=== PATIENT | male | born 1985 | race Caucasian/White ===

== ENCOUNTER 2017-06-14 19:48 | Inpatient (IN) | payer MEDICAID, OTHER ==
[2017-06-14 19:49] VITALS: BMI 27.7
[2017-06-14] MEDS ORDERED: Sodium Chloride 0.9% 1,000 ML IV ONE (20:56)
[2017-06-14] MEDS ORDERED: Sodium Chloride 0.9% 1,000 ML ONE (21:14)
--- NOTE | 2017-06-14 21:15 | C.PDOC ---
History Of Present Illness <Karey Ortega - Last Filed: 06/14/17 22:04> <Giancarlo Cárdenas - Last Filed: 06/15/17 00:21> 31 year old male presents to the ED for evaluation of pain and swelling to his left ankle which began after using IV heroin earlier today. Patient admits to using 6 bags. He states the ankle pain is worsening and he is unable to walk secondary to pain. Patient denies fever, chills. (Karey Ortega) pt seen and examined by this MD. PT injected "heroine" into the dorsum of L ankle area twice today, noted an immediate pain and burning to the ankle area and no pain relief from the "heroine." Denies injecting into the joint space intentionally. typically uses approx 6 bags heroine daily for "years." (Giancarlo Cárdenas) History Per: Patient History/Exam Limitations: no limitations Onset/Duration Of Symptoms: Hrs Current Symptoms Are (Timing): Still Present Additional History Per: Patient <JordanKarey L - Last Filed: 06/14/17 22:04> <Giancarlo Cárdenas - Last Filed: 06/15/17 00:21> Time Seen by Provider: 06/14/17 20:25 Chief Complaint (Nursing): Abnormal Skin Integrity Past Medical History Reviewed: Historical Data, Nursing Documentation, Vital Signs - Medical History PMH: Kidney Stones Surgical History: No Surg Hx Family History: States: Unknown Family Hx - Social History Hx Tobacco Use: Yes Hx Alcohol Use: No (a pint of vodka daily) Hx Substance Use: Yes (heroin) - Immunization History Hx Tetanus Toxoid Vaccination: Yes (recently while in senior care) Hx Influenza Vaccination: No Hx Pneumococcal Vaccination: No <JordanKarey L - Last Filed: 06/14/17 22:04> Vital Signs: Last Vital Signs Temp 99.2 F 06/14/17 19:59 Pulse 100 H 06/14/17 19:59 Resp 20 06/14/17 19:59 BP 151/87 H 06/14/17 19:59 Pulse Ox 100 06/14/17 22:06 - [facility] Procedures DRUG DETOXIFICATION (10/07/14) MEDS MGMT FOR SUBSTANCE ABUSE TREATMENT, METHADONE MAINT (01/19/16) Review Of Systems Constitutional: Negative for: Fever, Chills Musculoskeletal: Positive for: Other (left ankle pain and swelling ) <Karey Ortega - Last Filed: 06/14/17 22:04> Physical Exam - Physical Exam Appears: Non-toxic, No Acute Distress Skin: Normal Color, Warm, Dry, Other (bright erythema and tactile warmth to left medial ankle ) Head: Atraumatic, Normacephalic Eye(s): bilateral: Normal Inspection, EOMI Neck: Normal ROM Chest: Symmetrical Cardiovascular: Rhythm Regular, No Murmur Respiratory: Normal Breath Sounds, No Wheezing Extremity: No Normal ROM (limited to left ankle, secondary to pain ), No Calf Tenderness, Capillary Refill (less than 2 seconds), Other (swelling and erythema over medial aspect of left ankle ) Pulses: Left Dorsalis Pedis: Normal, Right Dorsalis Pedis: Normal Neurological/Psych: Oriented x3, Normal Speech Gait: Unable To Assess <Karey Ortega - Last Filed: 06/14/17 22:04> ED Course And Treatment - Laboratory Results Result Diagrams: 06/14/17 21:17 06/14/17 21:17 O2 Sat by Pulse Oximetry: 100 (on RA) Pulse Ox Interpretation: Normal <Karey Ortega - Last Filed: 06/14/17 22:04> - Laboratory Results Result Diagrams: 06/14/17 21:17 06/14/17 21:17 <Giancarlo Cárdenas - Last Filed: 06/15/17 00:21> Medical Decision Making: Impression: cellulitis s.p IVDA Plan: * Labs * Blood Cx * Xray Patient seen and examined by Dr Cárdenas. He does not think patient has septic joint. Recommends awaiting labs and giving antibiotics. if labs normal, can discharge with oral antibiotics Progress: Labs shows elevated WBC 18. UDS +opiates, cocaine and cannabis Spoke with Podiatry resident at 2150 who will come to evaluate patient. [address] Jacome who accepts patient to service (Karey Ortega) Disposition - Disposition Disposition Time: 21:55 - POA Present On Arrival: None <Karey Ortega - Last Filed: 06/14/17 22:04> <Giancarlo Cárdenas - Last Filed: 06/15/17 00:21> - Disposition Disposition: HOSPITALIZED Condition: STABLE - Clinical Impression Clinical Impression: IVDU (intravenous drug user), Cellulitis of left ankle - PA / [employer] / Resident Statement MD/DO has reviewed & agrees with the documentation as recorded. - Scribe Statement The provider has reviewed the documentation as recorded by the Scribe (Micaela Louie) <Karey Ortega - Last Filed: 06/14/17 22:04> <Giancarlo Cárdenas - Last Filed: 06/15/17 00:21> - Scribe Statement All medical record entries made by the Scribe were at my direction and personally dictated by me. I have reviewed the chart and agree that the record accurately reflects my personal performance of the history, physical exam, medical decision making, and the department course for this patient. I have also personally directed, reviewed, and agree with the discharge instructions and disposition. (Karey Ortega) Decision To Admit - Pt Status Changed To: Hospital Disposition Of: Inpatient - Admit Certification Admit to Inpatient:: After my assessment, the patient will require hospitalization for at least two midnights. This is because of the severity of symptoms shown, intensity of services needed, and/or the medical risk in this patient being treated as an outpatient. - InPatient: Physician Admission Certification: I certify that this patient requires 2 or more midnights of care for the following reason:: patient with cellulitis to left ankle. needs podiatry consult. will need IV antibiotics - . Bed Request Type: Regular Admitting Physician: Raul Jacome <Karey Ortega - Last Filed: 06/14/17 22:04> <Giancarlo Cárdenas - Last Filed: 06/15/17 00:21> - . Patient Diagnosis: IVDU (intravenous drug user), Cellulitis of left ankle
[2017-06-14] MEDS ORDERED: Piperacill/Tazo 3.375gm in Dex 3.375 GM/50 ML BAG IVPB STA (21:21)
[2017-06-14 21:25] LABS: BASO # 0.1 K/uL (0.0-0.2); BASO % 0.8 % (0.0-2.0); EOS # 0.2 K/uL (0.0-0.7); EOS % 1.2 % (0.0-4.0); HEMOGLOBIN 16.3 g/dL (12.0-18.0); LYMPH # 3.7 K/uL (1.0-4.3); LYMPH % 20.5 % (20.0-40.0); MEAN CELL VOLUME 86.1 fL (80.0-94.0); MEAN CORPUSCULAR HEMOGLOBIN 29.2 pg (27.0-31.0); MEAN PLATELET VOLUME 8.4 fL (7.2-11.7); MONO # 1.7 K/uL (0.0-0.8); MONO % 9.2 % (0.0-10.0); NEUT # 12.3 K/uL (1.8-7.0); NEUT % 68.3 % (50.0-75.0); NRBC % 0.1 % (0.0-2.0); RBC 5.57 Mil/uL (4.40-5.90); RED CELL DISTRIBUTION WIDTH 13.7 % (11.5-14.5)
[2017-06-14 21:32] LABS: SQUAMOUS EPITHIAL 1 /hpf (0-5); URINE BILIRUBIN NEGATIVE (NEGATIVE); URINE BLOOD 2+ (NEGATIVE); URINE CLARITY Hazy (Clear); URINE COLOR Yellow (YELLOW); URINE GLUCOSE (UA) NORMAL (Normal); URINE LEUKOCYTE ESTERASE NEG Leu/uL (Negative); URINE NITRATE NEGATIVE (NEGATIVE); URINE PROTEIN 1+ mg/dL (NEGATIVE)
[2017-06-14 21:34] LABS: ALB/GLOB RATIO 1.1 (1.0-2.1); ALBUMIN 4.3 g/dL (3.5-5.0); ALT/SGPT 77 U/L (21-72); AST/SGOT 67 U/L (17-59); BLOOD UREA NITROGEN 15 mg/dL (9-20); CALCIUM 9.1 mg/dl (8.6-10.4); GFR AFRICAN-AMERICAN > 60; GFR NON-AFRICAN AMERICAN > 60
[2017-06-14 21:40] LABS: BARBITURATES, UR NEGATIVE (NEGATIVE); BENZODIAZEPINES, UR NEGATIVE (NEGATIVE); PHENCYCLIDINE, UR NEGATIVE (NEGATIVE)
[2017-06-14 21:43] LABS: OPIATES, UR POSITIVE (NEGATIVE)
[2017-06-14] MEDS ORDERED: Vancomycin 1 gm/NS 200 ml 1 GM/200 ML BAG IVPB STA (21:48)
[2017-06-14] MEDS ORDERED: Piperacillin/Tazobact 3.375 gm 100 ML IVPB ONE (21:50)
--- NOTE | 2017-06-14 22:52 | CP.PCM.CON ---
History of Present Illness - History of Present Illness History of Present Illness: Podiatry Consult Note - Dr. Rivera 31 year old male with PMHx kidney stones, hx of substance abuse seen and evaluated in ED for left ankle pain. Patient hemodynamically stable and NAD. Patient states yesterday he tried to inject heroin into his veins in his left ankle and the top of his left foot. Patient states that he noticed today his left ankle was extremely painful, red, and swollen; patient currently complaining of 10/10 pain at left ankle injection site. Patient admits to taking someone else's prescribed Toradol for pain prior to presenting to ED, but it has not provided any pain relief. Patient unable to ambulate on his left foot secondary to pain. Patient states he had been "clean for years," but recently began using IV heroin again. No other pedal complaints. Patient denies any N/V/F/D/C/SOB currently. PMHx: kidney stones PSH: none FH: unknown SH: denies ETOH, 1PPD for 18 years, IV heroin, marijuana, cocaine All: shellfish Review of Systems - Review of Systems All systems: reviewed and no additional remarkable complaints except (as per HPI ) Past Patient History - Tetanus Immunizations Tetanus Immunization: Unknown - Past Medical History & Family History Past Medical History?: No - Past Social History Smoking Status: Heavy Smoker > 10 Cigarettes Daily - CARDIAC Hx Hypertension: No - PULMONARY Hx Respiratory Disorders: No Hx Tuberculosis: No - NEUROLOGICAL Hx Seizures: No - HEENT Hx HEENT Problems: No - RENAL Hx Kidney Stones: Yes - ENDOCRINE/METABOLIC Hx Endocrine Disorders: No - HEMATOLOGICAL/ONCOLOGICAL Hx Human Immunodeficiency Virus (HIV): No - INTEGUMENTARY Hx Dermatological Problems: No - MUSCULOSKELETAL/RHEUMATOLOGICAL Hx Musculoskeletal Disorders: No - GASTROINTESTINAL Hx Gastrointestinal Disorders: No - GENITOURINARY/GYNECOLOGICAL Hx Sexually Transmitted Disorders: No - PSYCHIATRIC Hx Substance Use: Yes (heroin) - SURGICAL HISTORY Hx Surgeries: No - ANESTHESIA Hx Anesthesia: No Meds Allergies/Adverse Reactions: Allergies Allergy/AdvReac Type Severity Reaction Status Date / Time shellfish derived Allergy ANGIOEDEMA Verified 01/19/16 16:34 - Medications Medications: Current Medications Vancomycin/Sodium Chloride (Vancomycin 1 Gm/Ns 200 Ml) 1 gm in 200 mls @ 133 mls/hr IVPB STAT STA Stop: 06/14/17 23:18 Sodium Chloride (Sodium Chloride 0.9%) 1,000 mls @ 100 mls/hr IV .Q10H DEISY Ibuprofen (Motrin Tab) 400 mg PO Q6 PRN PRN Reason: Pain, Mild (1-3) Ondansetron HCl (Zofran Inj) 4 mg IVP Q6 PRN PRN Reason: Nausea/Vomiting Pantoprazole Sodium (Protonix Ec Tab) 40 mg PO DAILY DEISY Physical Exam - Constitutional Appears: Well, Non-toxic, No Acute Distress - Extremities Exam Additional comments: VASC: DP pulses palpable 2/4 b/l. Right PT palpable 2/4. Left PT nonpalpable secondary to edema. CFT <3 seconds to all digits b/l. Temperature gradient warm to warm b/l. Increase in warmth noted to left medial ankle. Non-pitting edema noted to left medial ankle. Pedal hair growth appreciated. NEURO: Gross sensation intact. DERM: Pinpoint puncture lesion noted proximal to left medial malleolus with overlying eschar cap and surrounding erythema; no active drainage noted, no purulence, no fluctuance. Second pinpoint puncture lesion noted to dorsum of foot over 1st metatarsal shaft, noted to have overlying eschar cap and minimal surrounding erythema. ORTHO: Pain on palpation medial ankle and dorsum of 1st metatarsal shaft at pinpoint puncture lesions - Neurological Exam Neurological exam: Alert, Normal Gait - Psychiatric Exam Psychiatric exam: Normal Affect, Normal Mood Results - Vital Signs Recent Vital Signs: Last Vital Signs Temp 99.2 F 06/14/17 19:59 Pulse 100 H 06/14/17 19:59 Resp 20 06/14/17 19:59 BP 151/87 H 06/14/17 19:59 Pulse Ox 100 06/14/17 22:06 - Labs Result Diagrams: 06/14/17 21:17 06/14/17 21:17 Labs: Laboratory Results - last 24 hr 06/14/17 06/14/17 06/14/17 21:17 21:17 21:21 WBC 18.0 H D RBC 5.57 Hgb 16.3 Hct 48.0 MCV 86.1 MCH 29.2 MCHC 34.0 RDW 13.7 Plt Count 310 MPV 8.4 Neut % (Auto) 68.3 Lymph % (Auto) 20.5 [place] % (Auto) 9.2 Eos % (Auto) 1.2 Baso % (Auto) 0.8 Neut # (Auto) 12.3 H Lymph # (Auto) 3.7 [place] # (Auto) 1.7 H Eos # (Auto) 0.2 Baso # (Auto) 0.1 Sodium 138 Potassium 4.0 Chloride 96 L Carbon Dioxide 28 Anion Gap 18 BUN 15 Creatinine 0.6 L Est GFR ( Amer) > 60 Est GFR (Non-Af Amer) > 60 Random Glucose 91 Calcium 9.1 Total Bilirubin 0.8 AST 67 H ALT 77 H Alkaline Phosphatase 79 Total Protein 8.1 Albumin 4.3 Globulin 3.8 Albumin/Globulin Ratio 1.1 Urine Color Yellow Urine Clarity Hazy Urine pH 5.0 Ur Specific [place] 1.027 Urine Protein 1+ H Urine Glucose (UA) Normal Urine Ketones 1+ H Urine Blood 2+ H Urine Nitrate Negative Urine Bilirubin Negative Urine Urobilinogen 2.0 Ur Leukocyte Esterase Neg Urine WBC (Auto) 8 H Urine RBC (Auto) 89 H Ur Squamous Epith Cells 1 Urine Opiates Screen Urine Methadone Screen Ur Barbiturates Screen Ur Phencyclidine Scrn Ur Amphetamines Screen U Benzodiazepines Scrn U Oth Cocaine Metabols U Cannabinoids Screen Alcohol, Quantitative < 10 06/14/17 21:21 WBC RBC Hgb Hct MCV MCH MCHC RDW Plt Count MPV Neut % (Auto) Lymph % (Auto) [place] % (Auto) Eos % (Auto) Baso % (Auto) Neut # (Auto) Lymph # (Auto) [place] # (Auto) Eos # (Auto) Baso # (Auto) Sodium Potassium Chloride Carbon Dioxide Anion Gap BUN Creatinine Est GFR ( Amer) Est GFR (Non-Af Amer) Random Glucose Calcium Total Bilirubin AST ALT Alkaline Phosphatase Total Protein Albumin Globulin Albumin/Globulin Ratio Urine Color Urine Clarity Urine pH Ur Specific [place] Urine Protein Urine Glucose (UA) Urine Ketones Urine Blood Urine Nitrate Urine Bilirubin Urine Urobilinogen Ur Leukocyte Esterase Urine WBC (Auto) Urine RBC (Auto) Ur Squamous Epith Cells Urine Opiates Screen Positive H Urine Methadone Screen Negative Ur Barbiturates Screen Negative Ur Phencyclidine Scrn Negative Ur Amphetamines Screen Negative U Benzodiazepines Scrn Negative U Oth Cocaine Metabols Positive H U Cannabinoids Screen Positive H Alcohol, Quantitative Assessment & Plan - Assessment and Plan (Free Text) Assessment: 31 year old male with left ankle cellulitis secondary to IV heroin injection Plan: Patient seen and evaluated Discussed with attending, Dr. Rivera Afebrile, WBC 18.0 Left ankle XR reviewed: ST edema surrounding medial malleolus Patient started on Vancomycin, Zosyn in ED Pain control - Ibuprofen Patient to be admitted; podiatry will continue to follow while in house
--- NOTE | 2017-06-14 23:06 | CP.PCM.HP ---
<Nella JacintoSherita - Last Filed: 06/14/17 23:47> History of Present Illness - History of Present Illness History of Present Illness: CC: "I shot heroin and missed the vein and now I have an abscess." HPI: Patient is a 31 year old male with a past medical history of kidney stones and IV drug use, who presents to the ED with left ankle pain that he rates a 10/ 10. Patient reports using IV heroin yesterday in his ankle for the first time. He states he missed his vein and since then has had has severe pain and swelling at the site. He states he is unable to walk or move his foot/leg due to the pain. Patient states he took his mother's toradol yesterday, but pain was not relieved. He uses 6 bags of heroin IV daily for the last 4 years. His last use was Thursday at 4pm before coming to the hospital and used 4 bags total. His longest period of sobriety was 1 year, which he just broke 3 weeks ago when he started using IV heroin again. He also reports he occasionally smokes cocaine and smokes one blunt per week. Patient requests to go to detox and states he does not want to do drugs anymore. Patient currently admits to feeling sweaty and attributes that to withdrawing. Patient also admits to "a couple of weeks of coughing" with occasional brown sputum, a rash "on testicles that is itching and burning" and hard stool for the past two weeks. Patient denies chest pain, abdominal pain, nausea, vomiting, fevers/chills, headaches, dizziness, shortness of breath, diarrhea. PMD: Dr. 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 Allergies: NKDA Medications: none Present on Admission - Present on Admission Any Indicators Present on Admission: No Review of Systems - Constitutional Constitutional: absent: Chills, Fever, Headache, Weakness - EENT Eyes: absent: Change in Vision Nose/Mouth/Throat: absent: Sore Throat - Cardiovascular Cardiovascular: Diaphoresis, Leg Edema (left ankle). absent: Chest Pain, Dyspnea, Lightheadedness, Palpitations - Respiratory Respiratory: Cough (with phlegm, occasionally brown). absent: Dyspnea, Pain with Coughing - Gastrointestinal Gastrointestinal: Constipation. absent: Abdominal Pain, Cramping, Diarrhea, Nausea, Vomiting - Genitourinary Genitourinary: absent: Dysuria, Hematuria - Reproductive: Male Reproductive:Male: Genital Pruritis, Genital Odor - Integumentary Integumentary: Rash (genital) - Endocrine Endocrine: Excessive Sweating. absent: Palpitations Past Patient History - Tetanus Immunizations Tetanus Immunization: Unknown - Past Medical History & Family History Past Medical History?: No - Past Social History Smoking Status: Heavy Smoker > 10 Cigarettes Daily - CARDIAC Hx Hypertension: No - PULMONARY Hx Respiratory Disorders: No Hx Tuberculosis: No - NEUROLOGICAL Hx Seizures: No - HEENT Hx HEENT Problems: No - RENAL Hx Kidney Stones: Yes - ENDOCRINE/METABOLIC Hx Endocrine Disorders: No - HEMATOLOGICAL/ONCOLOGICAL Hx Human Immunodeficiency Virus (HIV): No - INTEGUMENTARY Hx Dermatological Problems: No - MUSCULOSKELETAL/RHEUMATOLOGICAL Hx Musculoskeletal Disorders: No - GASTROINTESTINAL Hx Gastrointestinal Disorders: No - GENITOURINARY/GYNECOLOGICAL Hx Sexually Transmitted Disorders: No - PSYCHIATRIC Hx Substance Use: Yes (heroin) - SURGICAL HISTORY Hx Surgeries: No - ANESTHESIA Hx Anesthesia: No Meds Allergies/Adverse Reactions: Allergies Allergy/AdvReac Type Severity Reaction Status Date / Time shellfish derived Allergy ANGIOEDEMA Verified 01/19/16 16:34 Physical Exam - Constitutional Appears: No Acute Distress - Head Exam Head Exam: NORMOCEPHALIC - Eye Exam Eye Exam: EOMI, Normal appearance. absent: Scleral icterus Pupil Exam: PERRL - ENT Exam ENT Exam: Mucous Membranes Moist - Respiratory Exam Respiratory Exam: Clear to Auscultation Bilateral, NORMAL BREATHING PATTERN. absent: Rales, Rhonchi, Wheezes, Respiratory Distress - Cardiovascular Exam Cardiovascular Exam: REGULAR RHYTHM, +S1, +S2 - GI/Abdominal Exam GI & Abdominal Exam: Normal Bowel Sounds, Soft. absent: Distended, Firm, Tenderness - Exam Exam: absent: NORMAL INSPECTION (erythema, mild rash noted inner thigh/ genital region), Scrotal Swelling - Extremities Exam Extremities exam: Positive for: tenderness (left medial malleolus), pedal pulses present. Negative for: calf tenderness, full ROM (Left LE due to pain), normal inspection (slight erythema- medial malleolus) - Neurological Exam Neurological exam: Alert, Oriented x3 - Psychiatric Exam Psychiatric exam: Normal Affect, Normal Mood - Skin Skin Exam: Intact, Normal Color, Warm Results - Vital Signs Recent Vital Signs: Last Vital Signs Temp 99.2 F 06/14/17 19:59 Pulse 100 H 06/14/17 19:59 Resp 20 06/14/17 19:59 BP 151/87 H 06/14/17 19:59 Pulse Ox 100 06/14/17 22:06 - Labs Result Diagrams: 06/14/17 21:17 06/14/17 21:17 Labs: Laboratory Results - last 24 hr 06/14/17 06/14/17 06/14/17 21:17 21:17 21:21 WBC 18.0 H D RBC 5.57 Hgb 16.3 Hct 48.0 MCV 86.1 MCH 29.2 MCHC 34.0 RDW 13.7 Plt Count 310 MPV 8.4 Neut % (Auto) 68.3 Lymph % (Auto) 20.5 [place] % (Auto) 9.2 Eos % (Auto) 1.2 Baso % (Auto) 0.8 Neut # (Auto) 12.3 H Lymph # (Auto) 3.7 [place] # (Auto) 1.7 H Eos # (Auto) 0.2 Baso # (Auto) 0.1 Sodium 138 Potassium 4.0 Chloride 96 L Carbon Dioxide 28 Anion Gap 18 BUN 15 Creatinine 0.6 L Est GFR ( Amer) > 60 Est GFR (Non-Af Amer) > 60 Random Glucose 91 Calcium 9.1 Total Bilirubin 0.8 AST 67 H ALT 77 H Alkaline Phosphatase 79 Total Protein 8.1 Albumin 4.3 Globulin 3.8 Albumin/Globulin Ratio 1.1 Urine Color Yellow Urine Clarity Hazy Urine pH 5.0 Ur Specific [place] 1.027 Urine Protein 1+ H Urine Glucose (UA) Normal Urine Ketones 1+ H Urine Blood 2+ H Urine Nitrate Negative Urine Bilirubin Negative Urine Urobilinogen 2.0 Ur Leukocyte Esterase Neg Urine WBC (Auto) 8 H Urine RBC (Auto) 89 H Ur Squamous Epith Cells 1 Urine Opiates Screen Urine Methadone Screen Ur Barbiturates Screen Ur Phencyclidine Scrn Ur Amphetamines Screen U Benzodiazepines Scrn U Oth Cocaine Metabols U Cannabinoids Screen Alcohol, Quantitative < 10 06/14/17 21:21 WBC RBC Hgb Hct MCV MCH MCHC RDW Plt Count MPV Neut % (Auto) Lymph % (Auto) [place] % (Auto) Eos % (Auto) Baso % (Auto) Neut # (Auto) Lymph # (Auto) [place] # (Auto) Eos # (Auto) Baso # (Auto) Sodium Potassium Chloride Carbon Dioxide Anion Gap BUN Creatinine Est GFR ( Amer) Est GFR (Non-Af Amer) Random Glucose Calcium Total Bilirubin AST ALT Alkaline Phosphatase Total Protein Albumin Globulin Albumin/Globulin Ratio Urine Color Urine Clarity Urine pH Ur Specific [place] Urine Protein Urine Glucose (UA) Urine Ketones Urine Blood Urine Nitrate Urine Bilirubin Urine Urobilinogen Ur Leukocyte Esterase Urine WBC (Auto) Urine RBC (Auto) Ur Squamous Epith Cells Urine Opiates Screen Positive H Urine Methadone Screen Negative Ur Barbiturates Screen Negative Ur Phencyclidine Scrn Negative Ur Amphetamines Screen Negative U Benzodiazepines Scrn Negative U Oth Cocaine Metabols Positive H U Cannabinoids Screen Positive H Alcohol, Quantitative Assessment & Plan (1) Cellulitis of left ankle Assessment and Plan: Secondary to IVDU; may be infiltration or phlebitis In the ED, vancomycin, zosyn, toradol, and IVF were given. Podiatry consulted, help appreciated Ankle xray: f/u results Venous doppler of left LE: f/u results Ibuprofen 600mg PO Q6h prn for moderate pain Vancomycin 1gm IV Q24 and Zosyn 3.375gm IV Q6h (active 06/15/17) May apply ice packs prn Status: Acute (2) Polysubstance abuse Assessment and Plan: Hx of opioid (IV), cocaine, and cannabinoid use Psychiatry consulted, Dr. Emery, help appreciated Clonidine 0.1 mg Q8h prn for autonomic symptoms Bentyl 10mg PO Q8h prn for cramps Ibuprofen 600mg Q6 prn for moderate pain Zofran 4mg IV 16prn for nausea/vomiting Status: Acute (3) Rash of genital area Assessment and Plan: Nystatin, apply topically to the affected area HIV 1&2: f/u results Status: Acute (4) Prophylactic measure Assessment and Plan: NO scds due to LE swelling/pain Protonix 40mg PO daily Regular Diet Status: Acute <Raul Jacome - Last Filed: 06/15/17 06:22> Results - Vital Signs Recent Vital Signs: Last Vital Signs Temp 98.7 F 06/15/17 04:12 Pulse 65 06/15/17 04:12 Resp 20 06/15/17 04:12 BP 103/58 L 06/15/17 04:12 Pulse Ox 98 06/15/17 04:12 - Labs Result Diagrams: 06/14/17 21:17 06/14/17 21:17 Labs: Laboratory Results - last 24 hr 06/14/17 06/14/17 06/14/17 21:17 21:17 21:21 WBC 18.0 H D RBC 5.57 Hgb 16.3 Hct 48.0 MCV 86.1 MCH 29.2 MCHC 34.0 RDW 13.7 Plt Count 310 MPV 8.4 Neut % (Auto) 68.3 Lymph % (Auto) 20.5 [place] % (Auto) 9.2 Eos % (Auto) 1.2 Baso % (Auto) 0.8 Neut # (Auto) 12.3 H Lymph # (Auto) 3.7 [place] # (Auto) 1.7 H Eos # (Auto) 0.2 Baso # (Auto) 0.1 Sodium 138 Potassium 4.0 Chloride 96 L Carbon Dioxide 28 Anion Gap 18 BUN 15 Creatinine 0.6 L Est GFR ( Amer) > 60 Est GFR (Non-Af Amer) > 60 Random Glucose 91 Calcium 9.1 Total Bilirubin 0.8 AST 67 H ALT 77 H Alkaline Phosphatase 79 Total Protein 8.1 Albumin 4.3 Globulin 3.8 Albumin/Globulin Ratio 1.1 Urine Color Yellow Urine Clarity Hazy Urine pH 5.0 Ur Specific [place] 1.027 Urine Protein 1+ H Urine Glucose (UA) Normal Urine Ketones 1+ H Urine Blood 2+ H Urine Nitrate Negative Urine Bilirubin Negative Urine Urobilinogen 2.0 Ur Leukocyte Esterase Neg Urine WBC (Auto) 8 H Urine RBC (Auto) 89 H Ur Squamous Epith Cells 1 Urine Opiates Screen Urine Methadone Screen Ur Barbiturates Screen Ur Phencyclidine Scrn Ur Amphetamines Screen U Benzodiazepines Scrn U Oth Cocaine Metabols U Cannabinoids Screen Alcohol, Quantitative < 10 06/14/17 21:21 WBC RBC Hgb Hct MCV MCH MCHC RDW Plt Count MPV Neut % (Auto) Lymph % (Auto) [place] % (Auto) Eos % (Auto) Baso % (Auto) Neut # (Auto) Lymph # (Auto) [place] # (Auto) Eos # (Auto) Baso # (Auto) Sodium Potassium Chloride Carbon Dioxide Anion Gap BUN Creatinine Est GFR ( Amer) Est GFR (Non-Af Amer) Random Glucose Calcium Total Bilirubin AST ALT Alkaline Phosphatase Total Protein Albumin Globulin Albumin/Globulin Ratio Urine Color Urine Clarity Urine pH Ur Specific [place] Urine Protein Urine Glucose (UA) Urine Ketones Urine Blood Urine Nitrate Urine Bilirubin Urine Urobilinogen Ur Leukocyte Esterase Urine WBC (Auto) Urine RBC (Auto) Ur Squamous Epith Cells Urine Opiates Screen Positive H Urine Methadone Screen Negative Ur Barbiturates Screen Negative Ur Phencyclidine Scrn Negative Ur Amphetamines Screen Negative U Benzodiazepines Scrn Negative U Oth Cocaine Metabols Positive H U Cannabinoids Screen Positive H Alcohol, Quantitative Assessment & Plan - Date & Time Date: 06/15/17 (I have seen and examined the patient. I agree with the findings and plan of care as documented by Dr. Jacinto. Patient with cellulitis. Cellulitis related to IV drug use. Vanco and Zosyn. Blood and wound cultures. Podiatry consult called by ED. Also with polysubstance abuse. Consult to psych for possible detox when available and medically stable. Monitor for acute changes.) Time: 06:20 Attending/Attestation - Attestation I have personally seen and examined this patient.: Yes I have fully participated in the care of the patient.: Yes I have reviewed all pertinent clinical information: Yes
[2017-06-14] MEDS ORDERED: Piperacillin/Tazobact 3.375 GM in Sodium Chloride 100 ML IVPB SCH (23:30)
[2017-06-15] MEDS: Vancomycin 1 gm/NS 200 ml 1 GM/200 ML BAG IVPB SCH ×2 (00:03→23:01)
[2017-06-15] MEDS: Piperacill/Tazo 3.375gm in Dex 3.375 GM/50 ML BAG IVPB SCH ×5 (00:04→22:00)
[2017-06-15] MEDS: Nystatin 100,000 Units/gm Cream(15 gm) TOP SCH ×4 (00:18→18:15)
[2017-06-15] MEDS: Sodium Chloride 0.9% 1,000 ML IV SCH ×2 (00:19→10:20)
[2017-06-15] MEDS ORDERED: Piperacillin/Tazobact 3.375 gm 0 ML IVPB ONE (05:28)
[2017-06-15 07:54] LABS: ALB/GLOB RATIO 1.1 (1.0-2.1); ALBUMIN 3.3 g/dL (3.5-5.0); ALT/SGPT 58 U/L (21-72); AST/SGOT 56 U/L (17-59); BASO % 0.4 % (0.0-2.0); BLOOD UREA NITROGEN 13 mg/dL (9-20); CALCIUM 8.4 mg/dl (8.6-10.4); EOS # 0.3 K/uL (0.0-0.7); EOS % 2.5 % (0.0-4.0); GFR AFRICAN-AMERICAN > 60; GFR NON-AFRICAN AMERICAN > 60; HEMOGLOBIN 14.9 g/dL (12.0-18.0); LYMPH # 1.8 K/uL (1.0-4.3); LYMPH % 17.5 % (20.0-40.0); MEAN CELL VOLUME 85.6 fL (80.0-94.0); MEAN CORPUSCULAR HEMOGLOBIN 29.7 pg (27.0-31.0); MEAN CORPUSCULAR HGB CONC 34.7 g/dL (33.0-37.0); MEAN PLATELET VOLUME 8.5 fL (7.2-11.7); MONO # 1.3 K/uL (0.0-0.8); MONO % 12.8 % (0.0-10.0); NEUT # 6.8 K/uL (1.8-7.0); NEUT % 66.8 % (50.0-75.0); NRBC % 0.1 % (0.0-2.0); RBC 5.02 Mil/uL (4.40-5.90); RED CELL DISTRIBUTION WIDTH 13.4 % (11.5-14.5); WHITE BLOOD COUNT 10.3 K/uL (4.8-10.8)
--- NOTE | 2017-06-15 08:27 | RAD ---
HISTORY: productive cough COMPARISON: 01/19/2016 TECHNIQUE: Chest PA and lateral FINDINGS: LUNGS: No active pulmonary disease. PLEURA: No significant pleural effusion identified. No pneumothorax apparent. CARDIOVASCULAR: Normal. OSSEOUS STRUCTURES: No significant abnormalities. VISUALIZED UPPER ABDOMEN: Normal. OTHER FINDINGS: None. IMPRESSION: No active disease.
[2017-06-15 08:48] LABS: HEPATITIS B SURFACE AG Negative (NEGATIVE)
[2017-06-15 08:53] LABS: HEPATITIS A IGM NEGATIVE (NEGATIVE)
[2017-06-15 08:54] LABS: HEPATITIS B CORE AB NEGATIVE (NEGATIVE)
--- NOTE | 2017-06-15 09:20 | RAD ---
PROCEDURE: Left ankle dated 06/14/2017 HISTORY: Pain and swelling, infection COMPARISON: None FINDINGS: BONES: Normal. No fracture. JOINTS: Normal. No osteoarthritis. Ankle mortise maintained. Talar dome intact SOFT TISSUES: Mild soft tissue swelling with small joint effusion OTHER FINDINGS: None. IMPRESSION: No evidence of acute displaced fracture nor dislocation. Mild soft tissue swelling or suspect small joint effusion.
[2017-06-15] MEDS ORDERED: Pantoprazole 40 mg EC Tab PO SCH (10:00)
--- NOTE | 2017-06-15 13:49 | CP.PCM.PN ---
Subjective - Date & Time of Evaluation Date of Evaluation: 06/15/17 Time of Evaluation: 13:48 - Subjective Subjective: Podiatry progress note for Dr. Rivera 31 year old male seen at beside in the ED regarding left ankle pain. He currently denies any pain to the area. He is very sleepy at time of visit. Currently denies any n/v/f/c/sob/cp. Objective - Vital Signs/Intake and Output Vital Signs (last 24 hours): Temp Pulse Resp BP Pulse Ox 99.4 F 75 16 129/77 99 06/15/17 11:46 06/15/17 11:46 06/15/17 11:46 06/15/17 11:46 06/15/17 11:46 - Medications Medications: Current Medications Clonidine HCl (Catapres) 0.1 mg PO Q8H PRN PRN Reason: Anxiety Dicyclomine HCl (Bentyl) 10 mg PO Q8H PRN PRN Reason: Leg cramps Heparin Sodium (Porcine) (Heparin) 5,000 units SC Q12 [facility] Last Admin: 06/15/17 11:57 Dose: 5,000 units Sodium Chloride (Sodium Chloride 0.9%) 1,000 mls @ 100 mls/hr IV .Q10H [facility] Last Admin: 06/15/17 10:20 Dose: 100 mls/hr Piperacillin Sod/Tazobactam Sod (Zosyn 3.375 Gm Iv Premix) 3.375 gm in 50 mls @ 100 mls/hr IVPB Q6H [facility] Last Admin: 06/15/17 11:46 Dose: 100 mls/hr Vancomycin/Sodium Chloride (Vancomycin 1 Gm/Ns 200 Ml) 1 gm in 200 mls @ 166.7 mls/hr IVPB Q24H [facility] Stop: 06/19/17 23:01 Last Admin: 06/15/17 00:03 Dose: Not Given Ibuprofen (Motrin Tab) 600 mg PO Q6 PRN PRN Reason: Pain, moderate (4-7) Nystatin (Mycostatin Cream) 1 ea TOP TID [facility] Last Admin: 06/15/17 13:06 Dose: Not Given Ondansetron HCl (Zofran Inj) 4 mg IVP Q6 PRN PRN Reason: Nausea/Vomiting Last Admin: 06/15/17 07:07 Dose: 4 mg Pantoprazole Sodium (Protonix Ec Tab) 40 mg PO DAILY [facility] Last Admin: 06/15/17 10:48 Dose: 40 mg - Labs Labs: 06/15/17 07:14 06/15/17 07:14 - Constitutional Appears: Non-toxic, No Acute Distress - Extremities Exam Additional comments: Left lower extremity focused exam: VASC: Left DP pulses palpable 2/4, PT nonpalpable secondary to edema. CFT <3 seconds to all digits b/l. Temperature gradient warm to warm b/l. Increase in warmth noted to left medial ankle. Non-pitting edema noted to left medial ankle. Pedal hair growth appreciated. NEURO: Gross sensation intact. DERM: Pinpoint puncture lesion noted proximal to left medial malleolus with overlying eschar cap and surrounding erythema; no active drainage noted, no purulence, no fluctuance. Second pinpoint puncture lesion noted to dorsum of foot over 1st metatarsal shaft, noted to have overlying eschar cap and minimal surrounding erythema. ORTHO: Tenderess on palpation medial ankle and dorsum of 1st metatarsal shaft at pinpoint puncture lesions - Neurological Exam Neurological Exam: Awake - Psychiatric Exam Psychiatric exam: Normal Affect Assessment and Plan - Assessment and Plan (Free Text) Assessment: 31 year old male with left ankle cellulitis secondary to IV heroin injection Plan: Patient seen and evaluated Discussed with attending, Dr. Rivera chart, labs, vitals revewed; febrile, WBC 10.3 Left ankle XR reviewed: ST edema surrounding medial malleolus Cont IV abx per primary Podiatry will cont to follow patient while in house
--- NOTE | 2017-06-15 13:59 | PCM.PSYCH ---
Initial Psychiatric Evaluation - Initial Psychiatric Evaluation Type of Admission: Voluntary Legal Status: Capacity Chief Complaint (in patient's own words): "I just want to get clean" History of Present Illness and Precipitating Events: Consult: Detox 31 y.o. 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 He has been using heroin for 3 years via injection about a bundle daily. He has never attended rehab but did detox one time (does not remember where). His longest sobriety was 1 year following his detox from which he relapsed 2 weeks ago. He smokes cocaine occasionally. He smokes a pack of cigarettes daily. He denies alcohol use. He denies all other drug use. He was complaint with NA meetings which helped him stay sober. He has a history of depression and anxiety which he was taking zoloft and clonidine for but stopped both medications in March. He is currently experience severe withdrawal symptoms including sweating, chills, aches, anxiety, and yawning. Detox Hx: once Rehab Hx: never Medical Hx: kidney stones Medications: zoloft, clonidine Psych Hx: depression, anxiety Fam Hx: father opioid use d/o Current Medications: Active Medications Generic Name Dose Route Start Last Admin Trade Name Freq PRN Reason Stop Dose Admin Clonidine HCl 0.1 mg 06/14/17 22:55 Catapres PO Q8H PRN Anxiety Dicyclomine HCl 10 mg 06/14/17 22:58 Bentyl PO Q8H PRN Leg cramps Heparin Sodium (Porcine) 5,000 units 06/15/17 10:00 06/15/17 11:57 Heparin SC 5,000 units Q12 [facility] Administration Sodium Chloride 1,000 mls @ 100 mls/hr 06/14/17 23:00 06/15/17 10:20 Sodium Chloride 0.9% IV 100 mls/hr .Q10H [facility] Administration Piperacillin Sod/Tazobactam Sod 3.375 gm in 50 mls @ 100 mls/hr 06/14/17 23: 00 06/15/17 11:46 Zosyn 3.375 Gm Iv Premix IVPB 100 mls/hr Q6H [facility] Administration Vancomycin/Sodium Chloride 1 gm in 200 mls @ 166.7 mls/hr 06/14/17 23:00 00:03 Vancomycin 1 Gm/Ns 200 Ml IVPB 06/19/17 23:01 Not Given Q24H [facility] Ibuprofen 600 mg 06/14/17 22:59 Motrin Tab PO Q6 PRN Pain, moderate (4-7) Nystatin 1 ea 06/14/17 23:15 06/15/17 13:06 Mycostatin Cream TOP Not Given TID [facility] Ondansetron HCl 4 mg 06/14/17 22:46 06/15/17 07:07 Zofran Inj IVP 4 mg Q6 PRN Administration Nausea/Vomiting Pantoprazole Sodium 40 mg 06/15/17 10:00 06/15/17 10:48 Protonix Ec Tab PO 40 mg DAILY [facility] Administration Past Psychiatric History - Past Psychiatric History Pertinent Medical Hx (Current Medical&Sleep Prob, Allergies): Allergies Allergy/AdvReac Type Severity Reaction Status Date / Time shellfish derived Allergy ANGIOEDEMA Verified 01/19/16 16:34 No Known Home Med 06/14/17 Review of Systems - Constitutional Constitutional: Chills, Sweats, Weakness, Malaise - Neurological Neurological: Other (yawning) - Psychiatric Psychiatric: Anxiety, Difficulty Concentrating, Irritability. absent: Depression, Hallucinations, Homicidal Ideation, Visual Hallucinations Mental Status Examination - Personal Presentation Personal Presentation: Looks stated age - Affect Affect: Constricted - Motor Activity Motor Activity: Calm - Reliability in Providing Information Reliability in Providing Information: Good - Speech Speech: Organized - Mood Mood: Anxious, Other (irritble ) - Formal Thought Process Formal Thought Process: No Impairment - Obsessions/Compulsions Obsessions: No Compulsions: No - Cognitive Functions Orientation: Person, Place, Situation, Time Sensorium: Alert Attention/Concentration: Easily distracted Abstract Thinking: [place] Estimate of Intelligence: Average Judgement: Intact, as evidence by: Insight regarding need for hospitalization Memory: Recent intact, as evidence by: Ability to recall events of the day, Remote intact, as evidenced by: Abilit to recall sig. life events - Risk Risk: Withdrawal - Strength & Assets Inventory Strength & Assets Inventory: Employment status, Skills, Life experience, Cooperative - Limitations Limitations: Living alone DSM 5 DX - DSM 5 DSM 5 Diagnosis: Opioid Withdrawal Opioid Use d/o - severe Anxiety d/o - unspecified Cocaine use d.o - severe Nicotine use d/0 - severe - Recommended/Plan of Treatment Treatment Recommendations and Plan of Treatment: Heroin detox Gabapentin for augmentation As needed medications All risks, benefits and alternatives of the meds discussed, and the pt agreed and understood. Attend groups and activities Supportive therapy and psychoeducation [place] for abstinence CBT for relapse prevention Encourage MAT Refer to rehab or IOP, and self-help groups Smoking cessation with [place] Nicotine patch 34 min Projected ELOS: 4-5 days Prognosis: good with treatment Discharge Plan and Discharge Criteria: NA and IOP - Smoking Cessation Smoking Cessation Initiated: Yes
--- NOTE | 2017-06-15 14:37 | CP.PCM.PN ---
<Fanny Olsen - Last Filed: 06/15/17 14:28> Subjective - Date & Time of Evaluation Date of Evaluation: 06/15/17 Time of Evaluation: 09:00 - Subjective Subjective: Medicine Note for Hospitalist Service- Dr. Lanier Patient was seen and examined at bedside. Patient reports left ankle pain, especially during range of motion. He also admits to nausea, and abdominal pain. Denied fever, chills, chest pain, SOB, v/d/c, or urinary symptoms. Reports his groan itch has calmed down since applying the nystatin cream. Objective - Vital Signs/Intake and Output Vital Signs (last 24 hours): Temp Pulse Resp BP Pulse Ox 99.4 F 75 16 129/77 99 06/15/17 11:46 06/15/17 11:46 06/15/17 11:46 06/15/17 11:46 06/15/17 11:46 - Medications Medications: Current Medications Clonidine HCl (Catapres) 0.1 mg PO Q8H PRN PRN Reason: Anxiety Dicyclomine HCl (Bentyl) 10 mg PO Q8H PRN PRN Reason: Leg cramps Heparin Sodium (Porcine) (Heparin) 5,000 units SC Q12 [facility] Last Admin: 06/15/17 11:57 Dose: 5,000 units Sodium Chloride (Sodium Chloride 0.9%) 1,000 mls @ 100 mls/hr IV .Q10H [facility] Last Admin: 06/15/17 10:20 Dose: 100 mls/hr Piperacillin Sod/Tazobactam Sod (Zosyn 3.375 Gm Iv Premix) 3.375 gm in 50 mls @ 100 mls/hr IVPB Q6H [facility] Last Admin: 06/15/17 11:46 Dose: 100 mls/hr Vancomycin/Sodium Chloride (Vancomycin 1 Gm/Ns 200 Ml) 1 gm in 200 mls @ 166.7 mls/hr IVPB Q24H [facility] Stop: 06/19/17 23:01 Last Admin: 06/15/17 00:03 Dose: Not Given Ibuprofen (Motrin Tab) 600 mg PO Q6 PRN PRN Reason: Pain, moderate (4-7) Nystatin (Mycostatin Cream) 1 ea TOP TID [facility] Last Admin: 06/15/17 13:06 Dose: Not Given Ondansetron HCl (Zofran Inj) 4 mg IVP Q6 PRN PRN Reason: Nausea/Vomiting Last Admin: 06/15/17 07:07 Dose: 4 mg Pantoprazole Sodium (Protonix Ec Tab) 40 mg PO DAILY [facility] Last Admin: 06/15/17 10:48 Dose: 40 mg - Labs Labs: 06/15/17 07:14 06/15/17 07:14 - Additional Findings Additional findings: - Constitutional Appears: No Acute Distress - Head Exam Head Exam: NORMOCEPHALIC - Eye Exam Eye Exam: EOMI, Normal appearance. absent: Scleral icterus Pupil Exam: PERRL - ENT Exam ENT Exam: Mucous Membranes Moist - Respiratory Exam Respiratory Exam: Clear to Auscultation Bilateral, NORMAL BREATHING PATTERN. absent: Rales, Rhonchi, Wheezes, Respiratory Distress - Cardiovascular Exam Cardiovascular Exam: REGULAR RHYTHM, +S1, +S2 - GI/Abdominal Exam GI & Abdominal Exam: Normal Bowel Sounds, Soft. absent: Distended, Firm, Tenderness - Exam Exam: absent: NORMAL INSPECTION (erythema, mild rash noted inner thigh/ genital region), Scrotal Swelling - Extremities Exam Extremities exam: Positive for: tenderness (left medial malleolus), pedal pulses present. Negative for: calf tenderness, full ROM (Left LE due to pain), normal inspection (slight erythema- medial malleolus) - Neurological Exam Neurological exam: Alert, Oriented x3 - Psychiatric Exam Psychiatric exam: Normal Affect, Normal Mood - Skin Skin Exam: Intact, Normal Color, Warm Assessment and Plan - Assessment and Plan (Free Text) Plan: Cellulitis of left ankle Secondary to IVDU; may be infiltration or phlebitis Podiatry consulted, help appreciated - no intervention at this time - will continue to monitor Ankle xray: no foreign Venous doppler of left LE: f/u results Blood cultures: f/u Ibuprofen 600mg PO Q6h prn for moderate pain Vancomycin 1gm IV Q24 and Zosyn 3.375gm IV Q6h (active 06/15/17), f/u vanco trough May apply ice packs prn Polysubstance abuse Assessment and Plan: Hx of opioid (IV), cocaine, and cannabinoid use Psychiatry consulted, Dr. Emery, help appreciated Clonidine 0.1 mg Q8h prn for autonomic symptoms Bentyl 10mg PO Q8h prn for cramps Ibuprofen 600mg Q6 prn for moderate pain Zofran 4mg IV 16prn for nausea/vomiting Hepatitis C+ Assessment and Plan: Patient will need to establish himself in our [facility] clinic, to receive GI referral for outpatient treatment. Rash of genital area Assessment and Plan: Nystatin, apply topically to the affected area HIV 1&2: negative Prophylactic Measures Assessment and Plan: NO scds due to LE swelling/pain Protonix 40mg PO daily Regular Diet DW Dr. Lanier, Fanny Olsen DO, PGY-1 <Aredn Lanier - Last Filed: 06/15/17 14:55> Objective - Vital Signs/Intake and Output Vital Signs (last 24 hours): Temp Pulse Resp BP Pulse Ox 99.4 F 75 16 129/77 99 06/15/17 11:46 06/15/17 11:46 06/15/17 11:46 06/15/17 11:46 06/15/17 11:46 - Medications Medications: Current Medications Clonidine HCl (Catapres) 0.1 mg PO Q8H PRN PRN Reason: Anxiety Dicyclomine HCl (Bentyl) 10 mg PO Q8H PRN PRN Reason: Leg cramps Heparin Sodium (Porcine) (Heparin) 5,000 units SC Q12 [facility] Last Admin: 06/15/17 11:57 Dose: 5,000 units Sodium Chloride (Sodium Chloride 0.9%) 1,000 mls @ 100 mls/hr IV .Q10H [facility] Last Admin: 06/15/17 10:20 Dose: 100 mls/hr Piperacillin Sod/Tazobactam Sod (Zosyn 3.375 Gm Iv Premix) 3.375 gm in 50 mls @ 100 mls/hr IVPB Q6H [facility] Last Admin: 06/15/17 11:46 Dose: 100 mls/hr Vancomycin/Sodium Chloride (Vancomycin 1 Gm/Ns 200 Ml) 1 gm in 200 mls @ 166.7 mls/hr IVPB Q24H [facility] Stop: 06/19/17 23:01 Last Admin: 06/15/17 00:03 Dose: Not Given Ibuprofen (Motrin Tab) 600 mg PO Q6 PRN PRN Reason: Pain, moderate (4-7) Nystatin (Mycostatin Cream) 1 ea TOP TID [facility] Last Admin: 06/15/17 13:06 Dose: Not Given Ondansetron HCl (Zofran Inj) 4 mg IVP Q6 PRN PRN Reason: Nausea/Vomiting Last Admin: 06/15/17 07:07 Dose: 4 mg Pantoprazole Sodium (Protonix Ec Tab) 40 mg PO DAILY [facility] Last Admin: 06/15/17 10:48 Dose: 40 mg - Labs Labs: 06/15/17 07:14 06/15/17 07:14 Attending/Attestation - Attestation I have personally seen and examined this patient.: Yes I have fully participated in the care of the patient.: Yes I have reviewed all pertinent clinical information, including history, physical exam and plan: Yes Notes (Text): 06/15/17 14:55 Medical attending: Patient was seen and examined by me, I saw the patient together with the medical/surgery registered nurse and agree with the above note by the resident. When I saw him at the medical/surgery registered nurse, he was still in the emergency room ending on the bed placement. He was sleeping he was not agitated. He appeared to be calm and was cooperative during the exam. He underwent ankle x-rays did not suggest any osteomyelitis or foreign bodies. The skin area with the erythema has been marked out by the medical/surgery registered nurse with a marker he is on IV antibiotics were to follow this area hopefully this can decrease in over time. Is also given be followed by psychiatry as well due to history of opiate Ebenezer as well as cocaine abuse. He also tested positive for hepatitis C Thank you very much, Arden Lanier
[2017-06-15 18:18] VITALS: TEMP 98.2
--- NOTE | 2017-06-15 18:34 | CARD ---
APPROVED REPORT EXAM: Two-dimensional and M-mode echocardiogram with Doppler and color Doppler. Other Information Quality : GoodRhythm : INDICATION Infection: Cellulitis/ IV drug user 2D DIMENSIONS IVSd0.8 (0.7-1.1cm)LVDd5.2 (3.9-5.9cm) PWd0.8 (0.7-1.1cm)LVDs2.9 (2.5-4.0cm) FS (%) 43.3 %LVEF (%)74.1 (>50%) M-Mode DIMENSIONS RVDd2.58 (2.1-3.2cm)Left Atrium (MM)3.91 (2.5-4.0cm) IVSd0.95 (0.7-1.1cm)Aortic Root3.05 (2.2-3.7cm) LVDd5.75 (4.0-5.6cm)Aortic Cusp Exc.2.41 (1.5-2.0cm) PWd0.74 (0.7-1.1cm)FS (%) 45 % LVDs3.14 (2.0-3.8cm)LVEF (%)76 (>50%) Mitral Valve MV E Ernyfehw42.0cm/sMV A Kmjxigzy33.9cm/sE/A ratio1.9 TDI E/Lateral E'0.0E/Medial E'0.0 Tricuspid Valve TR Peak [id number]/sTR Peak Gr.[id number] LEFT VENTRICLE The left ventricle is normal size. There is normal left ventricular wall thickness. The left ventricular function is normal. The left ventricular ejection fraction is within the normal range. There is normal LV segmental wall motion. The left ventricular diastolic function is normal. RIGHT VENTRICLE The right ventricle is normal size. The right ventricular systolic function is normal. ATRIA The left atrium size is normal. The right atrium size is normal. The interatrial septum is intact with no evidence for an atrial septal defect. AORTIC VALVE The aortic valve is normal in structure. No aortic regurgitation is present. MITRAL VALVE The mitral valve is normal in structure. There is no mitral valve regurgitation noted. TRICUSPID VALVE The tricuspid valve is normal in structure. There is trace tricuspid regurgitation. PULMONIC VALVE The pulmonary valve is normal in structure. GREAT VESSELS The aortic root is normal in size. The IVC is normal in size and collapses >50% with inspiration. PERICARDIAL EFFUSION There is no pericardial effusion. <Conclusion> Normal bi - ventricular function. No valvualr abnormality. No pericardial effusion.
[2017-06-15 20:51] VITALS: O2SAT 98
[2017-06-16 00:26] VITALS: BP 118/64; PULSE 65; RESP 20
[2017-06-16] MEDS: Sodium Chloride 0.9% 1,000 ML IV SCH (02:00)
[2017-06-16] MEDS: Piperacill/Tazo 3.375gm in Dex 3.375 GM/50 ML BAG IVPB SCH (04:30)
[2017-06-16] MEDS ORDERED: Piperacillin/Tazobact 3.375 GM in Sodium Chloride 0.9% 100 ML IVPB SCH ×2 (06:30→12:30)
[2017-06-16 07:52] LABS: ALB/GLOB RATIO 1.1 (1.0-2.1); ALBUMIN 3.3 g/dL (3.5-5.0); ALT/SGPT 51 U/L (21-72); AST/SGOT 39 U/L (17-59); BLOOD UREA NITROGEN 6 mg/dL (9-20); CALCIUM 8.4 mg/dl (8.6-10.4); GFR AFRICAN-AMERICAN > 60; GFR NON-AFRICAN AMERICAN > 60; MAGNESIUM 1.9 mg/dL (1.6-2.3)
[2017-06-16 07:53] LABS: BASO % 0.2 % (0.0-2.0); EOS # 0.1 K/uL (0.0-0.7); EOS % 0.8 % (0.0-4.0); HEMOGLOBIN 14.9 g/dL (12.0-18.0); LYMPH % 17.1 % (20.0-40.0); MEAN CELL VOLUME 85.7 fL (80.0-94.0); MEAN CORPUSCULAR HEMOGLOBIN 29.4 pg (27.0-31.0); MEAN CORPUSCULAR HGB CONC 34.3 g/dL (33.0-37.0); MEAN PLATELET VOLUME 8.9 fL (7.2-11.7); MONO # 0.9 K/uL (0.0-0.8); MONO % 7.8 % (0.0-10.0); NEUT # 8.6 K/uL (1.8-7.0); NEUT % 74.1 % (50.0-75.0); NRBC % 0.1 % (0.0-2.0); RBC 5.07 Mil/uL (4.40-5.90); RED CELL DISTRIBUTION WIDTH 13.1 % (11.5-14.5); WHITE BLOOD COUNT 11.6 K/uL (4.8-10.8)
--- NOTE | 2017-06-16 07:53 | CP.PCM.DIS ---
<aFnny Olsen - Last Filed: 06/16/17 07:49> Provider - Provider Date of Admission: 06/14/17 21:55 Attending physician: Arden Lanier DO Consults: Psych: Rupert Time Spent in preparation of Discharge (in minutes): 55 Hospital Course - Lab Results Lab Results: Micro Results 06/14/17 21:30 Blood Blood Culture - Preliminary NO GROWTH AFTER 24 HOURS 06/14/17 21:00 Blood Blood Culture - Preliminary NO GROWTH AFTER 24 HOURS Most Recent Lab Values WBC 10.3 K/uL (4.8-10.8) 06/15/17 07:14 RBC 5.02 Mil/uL (4.40-5.90) 06/15/17 07:14 Hgb 14.9 g/dL (12.0-18.0) 06/15/17 07:14 Hct 43.0 % (35.0-51.0) 06/15/17 07:14 MCV 85.6 fL (80.0-94.0) 06/15/17 07:14 MCH 29.7 pg (27.0-31.0) 06/15/17 07:14 MCHC 34.7 g/dL (33.0-37.0) 06/15/17 07:14 RDW 13.4 % (11.5-14.5) 06/15/17 07:14 Plt Count 258 K/uL (130-400) 06/15/17 07:14 MPV 8.5 fL (7.2-11.7) 06/15/17 07:14 Neut % (Auto) 66.8 % (50.0-75.0) 06/15/17 07:14 Lymph % (Auto) 17.5 % (20.0-40.0) L 06/15/17 07:14 [place] % (Auto) 12.8 % (0.0-10.0) H 06/15/17 07:14 Eos % (Auto) 2.5 % (0.0-4.0) 06/15/17 07:14 Baso % (Auto) 0.4 % (0.0-2.0) 06/15/17 07:14 Neut # (Auto) 6.8 K/uL (1.8-7.0) 06/15/17 07:14 Lymph # (Auto) 1.8 K/uL (1.0-4.3) 06/15/17 07:14 [place] # (Auto) 1.3 K/uL (0.0-0.8) H 06/15/17 07:14 Eos # (Auto) 0.3 K/uL (0.0-0.7) 06/15/17 07:14 Baso # (Auto) 0.0 K/uL (0.0-0.2) 06/15/17 07:14 Sodium 136 mmol/L (132-148) 06/15/17 07:14 Potassium 3.7 mmol/L (3.6-5.2) 06/15/17 07:14 Chloride 104 mmol/L (98-107) 06/15/17 07:14 Carbon Dioxide 22 mmol/L (22-30) 06/15/17 07:14 Anion Gap 14 (10-20) 06/15/17 07:14 BUN 13 mg/dL (9-20) 06/15/17 07:14 Creatinine 0.6 mg/dL (0.8-1.5) L 06/15/17 07:14 Est GFR ( Amer) > 60 06/15/17 07:14 Est GFR (Non-Af Amer) > 60 06/15/17 07:14 Random Glucose 100 mg/dL (75-110) 06/15/17 07:14 Calcium 8.4 mg/dl (8.6-10.4) L 06/15/17 07:14 Phosphorus 2.7 mg/dL (2.5-4.5) 06/15/17 09:31 Magnesium 2.0 mg/dL (1.6-2.3) 06/15/17 09:31 Total Bilirubin 0.7 mg/dL (0.2-1.3) 06/15/17 07:14 AST 56 U/L (17-59) 06/15/17 07:14 ALT 58 U/L (21-72) 06/15/17 07:14 Alkaline Phosphatase 59 U/L (38-126) 06/15/17 07:14 Total Protein 6.3 g/dL (6.3-8.3) 06/15/17 07:14 Albumin 3.3 g/dL (3.5-5.0) L D 06/15/17 07:14 Globulin 2.9 gm/dL (2.2-3.9) 06/15/17 07:14 Albumin/Globulin Ratio 1.1 (1.0-2.1) 06/15/17 07:14 Urine Color Yellow (YELLOW) 06/14/17 21:21 Urine Clarity Hazy (Clear) 06/14/17 21:21 Urine pH 5.0 (5.0-8.0) 06/14/17 21:21 Ur Specific [place] 1.027 (1.003-1.030) 06/14/17 21:21 Urine Protein 1+ mg/dL (NEGATIVE) H 06/14/17 21:21 Urine Glucose (UA) Normal mg/dL (Normal) 06/14/17 21:21 Urine Ketones 1+ mg/dL (NEGATIVE) H 06/14/17 21:21 Urine Blood 2+ (NEGATIVE) H 06/14/17 21:21 Urine Nitrate Negative (NEGATIVE) 06/14/17 21:21 Urine Bilirubin Negative (NEGATIVE) 06/14/17 21:21 Urine Urobilinogen 2.0 mg/dL (0.2-1.0) 06/14/17 21:21 Ur Leukocyte Esterase Neg Hilda/uL (Negative) 06/14/17 21:21 Urine WBC (Auto) 8 /hpf (0-5) H 06/14/17 21:21 Urine RBC (Auto) 89 /hpf (0-3) H 06/14/17 21:21 Ur Squamous Epith Cells 1 /hpf (0-5) 06/14/17 21:21 Urine Opiates Screen Positive (NEGATIVE) H 06/14/17 21:21 Urine Methadone Screen Negative (NEGATIVE) 06/14/17 21:21 Ur Barbiturates Screen Negative (NEGATIVE) 06/14/17 21:21 Ur Phencyclidine Scrn Negative (NEGATIVE) 06/14/17 21:21 Ur Amphetamines Screen Negative (NEGATIVE) 06/14/17 21:21 U Benzodiazepines Scrn Negative (NEGATIVE) 06/14/17 21:21 U Oth Cocaine Metabols Positive (NEGATIVE) H 06/14/17 21:21 U Cannabinoids Screen Positive (NEGATIVE) H 06/14/17 21:21 Alcohol, Quantitative < 10 mg/dl (0-10) 06/14/17 21:17 Hepatitis A IgM Ab Negative (NEGATIVE) 06/15/17 08:01 Hep Bs Antigen Negative (NEGATIVE) 06/15/17 08:01 Hep B Core IgM Ab Negative (NEGATIVE) 06/15/17 08:01 Hepatitis C Antibody Reactive (NEGATIVE) 06/15/17 08:01 HIV 1&2 Antibody Screen Negative (NEGATIVE) 06/15/17 09:38 - Hospital Course Hospital Course: Upon Admission: CC: "I shot heroin and missed the vein and now I have an abscess." HPI: Patient is a 31 year old male with a past medical history of kidney stones and IV drug use, who presents to the ED with left ankle pain that he rates a 10/ 10. Patient reports using IV heroin yesterday in his ankle for the first time. He states he missed his vein and since then has had has severe pain and swelling at the site. He states he is unable to walk or move his foot/leg due to the pain. Patient states he took his mother's toradol yesterday, but pain was not relieved. He uses 6 bags of heroin IV daily for the last 4 years. His last use was Thursday at 4pm before coming to the hospital and used 4 bags total. His longest period of sobriety was 1 year, which he just broke 3 weeks ago when he started using IV heroin again. He also reports he occasionally smokes cocaine and smokes one blunt per week. Patient requests to go to detox and states he does not want to do drugs anymore. Patient currently admits to feeling sweaty and attributes that to withdrawing. Patient also admits to "a couple of weeks of coughing" with occasional brown sputum, a rash "on testicles that is itching and burning" and hard stool for the past two weeks. Patient denies chest pain, abdominal pain, nausea, vomiting, fevers/chills, headaches, dizziness, shortness of breath, diarrhea. PMD: Dr. 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 Allergies: NKDA Medications: none Throughout Hospital Course: Patient admitted for cellulitis. Patient was placed on IV abx would transition to PO abx and once medically cleared patient was going to be transferred to Detox. Patient refused to stay. He signed out AMA due to not receiving any methadone or subutrex. Patient reported he took a subutrex from his wallet. Cellulitis of left ankle Secondary to IVDU; may be infiltration or phlebitis Podiatry consulted, help appreciated - no intervention at this time - will continue to monitor Ankle xray: no foreign Venous doppler of left LE: f/u results Blood cultures: negative to date Ibuprofen 600mg PO Q6h prn for moderate pain Vancomycin 1gm IV Q24 and Zosyn 3.375gm IV Q6h (active 06/15/17), f/u vanco trough May apply ice packs prn Polysubstance abuse Assessment and Plan: Hx of opioid (IV), cocaine, and cannabinoid use Psychiatry consulted, Dr. Emery, help appreciated Clonidine 0.1 mg Q8h prn for autonomic symptoms Bentyl 10mg PO Q8h prn for cramps Ibuprofen 600mg Q6 prn for moderate pain Zofran 4mg IV 16prn for nausea/vomiting Hepatitis C+ Assessment and Plan: Patient will need to establish himself in our [facility] clinic, to receive GI referral for outpatient treatment. Rash of genital area Assessment and Plan: Nystatin, apply topically to the affected area HIV 1&2: negative Please review EMR for full record. This is a brief summary of the patient's hospital course. Discharge Exam - Additional Findings Additional findings: - Constitutional Appears: No Acute Distress - Head Exam Head Exam: NORMOCEPHALIC - Eye Exam Eye Exam: EOMI, Normal appearance. absent: Scleral icterus Pupil Exam: PERRL - ENT Exam ENT Exam: Mucous Membranes Moist - Respiratory Exam Respiratory Exam: Clear to Auscultation Bilateral, NORMAL BREATHING PATTERN. absent: Rales, Rhonchi, Wheezes, Respiratory Distress - Cardiovascular Exam Cardiovascular Exam: REGULAR RHYTHM, +S1, +S2 - GI/Abdominal Exam GI & Abdominal Exam: Normal Bowel Sounds, Soft. absent: Distended, Firm, Tenderness - Exam Exam: absent: NORMAL INSPECTION (erythema, mild rash noted inner thigh/ genital region), Scrotal Swelling - Extremities Exam Extremities exam: Positive for: tenderness (left medial malleolus), pedal pulses present. Negative for: calf tenderness, full ROM (Left LE due to pain), normal inspection (slight erythema- medial malleolus) - Neurological Exam Neurological exam: Alert, Oriented x3 - Psychiatric Exam Psychiatric exam: Normal Affect, Normal Mood - Skin Skin Exam: Intact, Normal Color, Warm Discharge Plan - Follow Up Plan Disposition: AGAINST MEDICAL ADVICE Instructions: Cellulitis (DC), Cellulitis (GEN) Additional Instructions: You sign out against medical advice. PLEASE FOLLOW UP WITH OWN PRIMARY PHYSICIAN TODAY OR SOON POSSIBLE. Please return to the ED if your symptoms worsen. You develop fever, chills, or drainage from the site. Referrals: [facility] [Outside] <Arden Lanier - Last Filed: 06/16/17 09:40> Provider - Provider Date of Admission: 06/14/17 21:55 Attending physician: Arden Lanier DO Hospital Course - Lab Results Lab Results: Micro Results 06/14/17 21:30 Blood Blood Culture - Preliminary NO GROWTH AFTER 24 HOURS 06/14/17 21:00 Blood Blood Culture - Preliminary NO GROWTH AFTER 24 HOURS Most Recent Lab Values WBC 11.6 K/uL (4.8-10.8) H 06/16/17 07:16 RBC 5.07 Mil/uL (4.40-5.90) 06/16/17 07:16 Hgb 14.9 g/dL (12.0-18.0) 06/16/17 07:16 Hct 43.4 % (35.0-51.0) 06/16/17 07:16 MCV 85.7 fL (80.0-94.0) 06/16/17 07:16 MCH 29.4 pg (27.0-31.0) 06/16/17 07:16 MCHC 34.3 g/dL (33.0-37.0) 06/16/17 07:16 RDW 13.1 % (11.5-14.5) 06/16/17 07:16 Plt Count 271 K/uL (130-400) 06/16/17 07:16 MPV 8.9 fL (7.2-11.7) 06/16/17 07:16 Neut % (Auto) 74.1 % (50.0-75.0) 06/16/17 07:16 Lymph % (Auto) 17.1 % (20.0-40.0) L 06/16/17 07:16 [place] % (Auto) 7.8 % (0.0-10.0) 06/16/17 07:16 Eos % (Auto) 0.8 % (0.0-4.0) 06/16/17 07:16 Baso % (Auto) 0.2 % (0.0-2.0) 06/16/17 07:16 Neut # (Auto) 8.6 K/uL (1.8-7.0) H 06/16/17 07:16 Lymph # (Auto) 2.0 K/uL (1.0-4.3) 06/16/17 07:16 [place] # (Auto) 0.9 K/uL (0.0-0.8) H 06/16/17 07:16 Eos # (Auto) 0.1 K/uL (0.0-0.7) 06/16/17 07:16 Baso # (Auto) 0.0 K/uL (0.0-0.2) 06/16/17 07:16 Sodium 135 mmol/L (132-148) 06/16/17 07:16 Potassium 3.6 mmol/L (3.6-5.2) 06/16/17 07:16 Chloride 104 mmol/L (98-107) 06/16/17 07:16 Carbon Dioxide 23 mmol/L (22-30) 06/16/17 07:16 Anion Gap 12 (10-20) 06/16/17 07:16 BUN 6 mg/dL (9-20) L 06/16/17 07:16 Creatinine 0.6 mg/dL (0.8-1.5) L 06/16/17 07:16 Est GFR ( Amer) > 60 06/16/17 07:16 Est GFR (Non-Af Amer) > 60 06/16/17 07:16 Random Glucose 94 mg/dL (75-110) 06/16/17 07:16 Calcium 8.4 mg/dl (8.6-10.4) L 06/16/17 07:16 Phosphorus 3.1 mg/dL (2.5-4.5) 06/16/17 07:16 Magnesium 1.9 mg/dL (1.6-2.3) 06/16/17 07:16 Total Bilirubin 0.6 mg/dL (0.2-1.3) 06/16/17 07:16 AST 39 U/L (17-59) 06/16/17 07:16 ALT 51 U/L (21-72) 06/16/17 07:16 Alkaline Phosphatase 54 U/L (38-126) 06/16/17 07:16 Total Protein 6.3 g/dL (6.3-8.3) 06/16/17 07:16 Albumin 3.3 g/dL (3.5-5.0) L 06/16/17 07:16 Globulin 3.0 gm/dL (2.2-3.9) 06/16/17 07:16 Albumin/Globulin Ratio 1.1 (1.0-2.1) 06/16/17 07:16 Urine Color Yellow (YELLOW) 06/14/17 21:21 Urine Clarity Hazy (Clear) 06/14/17 21:21 Urine pH 5.0 (5.0-8.0) 06/14/17 21:21 Ur Specific [place] 1.027 (1.003-1.030) 06/14/17 21:21 Urine Protein 1+ mg/dL (NEGATIVE) H 06/14/17 21:21 Urine Glucose (UA) Normal mg/dL (Normal) 06/14/17 21:21 Urine Ketones 1+ mg/dL (NEGATIVE) H 06/14/17 21:21 Urine Blood 2+ (NEGATIVE) H 06/14/17 21:21 Urine Nitrate Negative (NEGATIVE) 06/14/17 21:21 Urine Bilirubin Negative (NEGATIVE) 06/14/17 21:21 Urine Urobilinogen 2.0 mg/dL (0.2-1.0) 06/14/17 21:21 Ur Leukocyte Esterase Neg Hilda/uL (Negative) 06/14/17 21:21 Urine WBC (Auto) 8 /hpf (0-5) H 06/14/17 21:21 Urine RBC (Auto) 89 /hpf (0-3) H 06/14/17 21:21 Ur Squamous Epith Cells 1 /hpf (0-5) 06/14/17 21:21 Urine Opiates Screen Positive (NEGATIVE) H 06/14/17 21:21 Urine Methadone Screen Negative (NEGATIVE) 06/14/17 21:21 Ur Barbiturates Screen Negative (NEGATIVE) 06/14/17 21:21 Ur Phencyclidine Scrn Negative (NEGATIVE) 06/14/17 21:21 Ur Amphetamines Screen Negative (NEGATIVE) 06/14/17 21:21 U Benzodiazepines Scrn Negative (NEGATIVE) 06/14/17 21:21 U Oth Cocaine Metabols Positive (NEGATIVE) H 06/14/17 21:21 U Cannabinoids Screen Positive (NEGATIVE) H 06/14/17 21:21 Alcohol, Quantitative < 10 mg/dl (0-10) 06/14/17 21:17 Hepatitis A IgM Ab Negative (NEGATIVE) 06/15/17 08:01 Hep Bs Antigen Negative (NEGATIVE) 06/15/17 08:01 Hep B Core IgM Ab Negative (NEGATIVE) 06/15/17 08:01 Hepatitis C Antibody Reactive (NEGATIVE) 06/15/17 08:01 HIV 1&2 Antibody Screen Negative (NEGATIVE) 06/15/17 09:38 Attending/Attestation - Attestation I have personally seen and examined this patient.: Yes I have fully participated in the care of the patient.: Yes I have reviewed all pertinent clinical information, including history, physical exam and plan: Yes Notes (Text): 06/16/17 09:40 Medical attending: Patient has left AMA this morning before I could see him during rounding.
--- NOTE | 2017-06-16 12:12 | CARD ---
APPROVED REPORT EKG Measurement Heart [id number] <Conclusion> Normal sinus rhythm Normal ECG
[2017-06-17] MEDS ORDERED: Pneumococcal 23-Valent Vaccine IM ONE (10:00)
[2017-06-17 12:21] LABS: HEPATITIS C ANTIBODY REACTIVE (NEGATIVE)
[2017-06-18] MEDS ORDERED: Pneumococcal 23-Valent Vaccine IM ONE (10:00)
[2017-06-18] MEDS ORDERED: Influenza Vaccine 60 mcg/0.5 mL SYR (4YR UP) IM ONE (10:00)
== END 2017-06-16 08:20 | disposition left against medical advice (07) | DRG 277 ==
LOC: C.ER 19:48 → C.9E 21:55 → C.5S 06-15 17:57 → C.9E 06-15 18:09 → C.3T 06-15 20:04
PROVIDERS: ADMIT Hospitalist; ATTEND Hospitalist
DX: L03.116 Cellulitis of left lower limb (principal); F11.23 Opioid dependence with withdrawal; I80.8 Phlebitis and thrombophlebitis of other sites; B19.20 Unspecified viral hepatitis C without hepatic coma; F14.90 Cocaine use, unspecified, uncomplicated; F12.90 Cannabis use, unspecified, uncomplicated; R21 Rash and other nonspecific skin eruption